=== PATIENT | male | born 1945 | race Caucasian/White ===

== ENCOUNTER 2016-12-03 03:06 | Emergency (ER) | payer MEDICARE ==
[~2016-12-03] VITALS: Ht 180.3 cm; Wt 109.1 kg
[~2016-12-03 03:06] MED LIST: ASPI-973 PO; BENA5TAB PO; CHOL10008 PO; DILT240C89 PO; INSLIS SUBQ; INSU100V28 SUBQ; METF500T4 PO; MYCO500T PO; OXYC5TAB72 PO; PANT40TA3 PO; PYRI60TA2 PO; TAMS0.4C98 PO; VENL75TA3 PO; WARF10TA PO; WARF7.5T PO
[2016-12-03 03:10] VITALS: BP 115/63; RESP 20; O2SAT 96
[2016-12-03 04:19] VITALS: BP 122/68; PULSE 84; RESP 20; O2SAT 97
--- NOTE | 2016-12-03 04:19 | ED.REPORT ---
HPI-Facial Injury Date of Service Dec 03, 2016 ED Provider: Miguel White MD Patient is a 70 year old male with a history of diabetes mellitus, myasthenia gravis, and chronic atrial fibrillation on Coumadin who presents to the ED with an intermittent right-sided nosebleed that began yesterday, uncontrollable for 1 hour prior to arrival. He states that the blood sometimes runs down his throat. His INR was last checked on November 14 and it was 2.8. It has been stable at that level for some time. Patient denies sustaining any recent trauma to his nose. He does not have any other sources of bleeding. Nursing Notes Stated Complaint: NOSE BLEED Chief Complaint: ENT & Mouth Nursing Notes Reviewed: Yes Allergies: Coded Allergies: sulfamethoxazole (Verified Allergy, Intermediate, RASH, 12/03/16) trimethoprim (Verified Allergy, Intermediate, RASH, 12/03/16) Scheduled Aspirin (Aspirin) 81 Mg Tablet 81 MG PO DAILY Benazepril (Benazepril) 5 Mg Tablet 5 MG PO DAILY Cholecalciferol (Vitamin D3) (Vitamin D3) 1,000 Unit Tab.chew 2,000 UNIT PO DAILY Diltiazem ER (Diltiazem ER) 240 Mg Cap.er.24h 240 MG PO DAILY Insulin Human Lispro (HumaLOG U100 Insulin Vial) 100 Unit/Ml Unit 1 UNIT SUBQ per sliding scale Check blood sugars before meals and at bedtime. Use correction factor only before meals. Blood Sugar Lispro Correction: <151, 0 units; 151-175, 1 unit; 176-200, 2 units; 201-225, 3 units; 226-250, 4 units; 251-275, 5 units; 276-300 , 6 units; 301-325, 7 units; 326-350, 8 units; 351-375, 9 units; 376-400, 10 units; >400, 12 units. Insulin Regular, Human (HUMulin-R U100 Insulin Vial) 100 Unit/1 Ml Vial 70 UNIT SUBQ QAM Insulin Regular, Human (HUMulin-R U100 Insulin Vial) 100 Unit/1 Ml Vial 1 UNIT SUBQ per sliding scale pm Metformin (Metformin) 500 Mg Tablet 500 MG PO BID Mycophenolate Mofetil (Cellcept) 500 Mg Tablet 500 MG PO BID Pantoprazole DR (Pantoprazole DR) 40 Mg Tablet.dr 40 MG PO DAILY Pyridostigmine Hondo (Mestinon) 60 Mg Tablet 90 MG PO TID Tamsulosin (Flomax) 0.4 Mg Capsule 0.4 MG PO DAILY Venlafaxine (Venlafaxine) 75 Mg Tablet 75 MG PO BID Warfarin Sodium (Coumadin) 7.5 Mg Tablet 7.5 MG PO 5xweekly Warfarin Sodium (Coumadin) 10 Mg Tablet 10 MG PO Mon/Thurs Scheduled PRN oxyCODONE (oxyCODONE) 5 Mg Tablet 5 MG PO q4 PRN PRN For Moderate Pain General Time Seen by Provider: 04:21 Chief Complaint Nose bleed Hx Obtained From: Patient Arrived By: Walk-in Onset Occurred: Just prior to arrival Symptom Duration: Intermittent Location: : Nose Quality: Painful Severity: Current: Mild Severity: Maximum: Mild Recent Healthcare: No recent doctor visit, No recent hospitalization Similar Sx Previous: No Past Medical History Past Medical History Myasthenia gravis Anxiety insomnia Vitamin D deficiency atrial fibrillation on Warfarin Reports: Diabetes mellitus, Hyperlipidemia, Hypertension Past Surgical History None reported Smoking History Former Smoker Social History Alcohol Use: 1-3 per week Drug Use: Denies drug use Other Social History: Good social support, , Local resident Occupation Retired Radiologist Ambulatory Status Independent Review of Systems Ears / Nose / Throat: Reports: Nose bleeding, Denies: Sinus problem Neurologic: Denies: Change LOC, Headache Complete sys rev & neg: except as marked. Hematologic: Reports Bleeding, Denies Bruising Physical Exam Initial Vital Signs Vital Signs (First) Date Time Temp Pulse Resp B/P Pulse Ox O2 Delivery O2 Flow Rate FiO2 12/03/16 03:10 36.5 83 20 115/63 96 Room Air Initial VS: Reviewed, Vital signs normal Extremities: Vascular intact, Neuro intact Skin: Warm, Dry, No cyanosis Psychiatric: Mood/affect normal, Behavior normal, Normal thought content Head / Eyes: Atraumatic, Normocephalic, PERRL ENT: Airway patent Nose: Positive: Epistaxis right clamp in place Neck: Supple, Full range of motion Neurologic: Oriented X3, Speech NL, No motor deficits, No sensory deficits General/Constitutional: Awake, Alert Appearance / Presentation: Positive: Obese blood stained shirt Respiratory / Chest: Breath sounds NL, No respiratory distress, No stridor Cardiovascular: Heart rate NL, Peripheral circulation NL Interpretation & Diagnostics Lab Results Interpretation Result Diagram: 12/03/16 0509 Test 12/03/16 05:05 White Blood Count 9.0th/mm3 (3.8-10.1) Red Blood Count 4.10mil/mm3 (4.40-5.80) Hemoglobin 12.4g/dL (13.8-17.2) Hematocrit 38.4% (41.0-50.0) Mean Corpuscular Volume 93.7fL (81-100) Mean Corpuscular Hemoglobin 30.2pg (27.0-35.0) Mean Corpuscular Hemoglobin Concent 32.3% (32.0-37.0) Red Cell Distribution Width 13.9% (12.3-15.4) Platelet Count 220bil/L (150-400) Neutrophils (%) (Auto) 59.6% (40-74) Lymphocytes (%) (Auto) 26.3% (14-46) Monocytes (%) (Auto) 9.7% (4-12) Eosinophils (%) (Auto) 3.9% (0-5) Basophils (%) (Auto) 0.3% (0-3) Prothrombin Time 35.1sec (8.1-12.5) Prothromb Time International Ratio 3.20ratio Hold Bonilla Top Tube Received (Received) Lab Results Interpretation: INR 3.2, a little elevated hemoglobin 12.4, no significant anemia. Procedures Epistaxis Management Time: 06:00 Procedure Performed by: ED physician Consent / Setup / Site Prep: Consent from patient, Time-out performed, Hand hygiene observed, Stand sterile technique Side and Location of Bleed: Nare right - unknown Pre-medication and Procedure: Oxymetazoline, Rapid rhino inserted Post-Procedure / Complications: Bleeding decreased (dripping around the rhinorocket), Complications, Patient stable, Patient unstable, Tolerated procedure well Re-Eval/Medical Decision Med Decision/Clinical Course 70-year-old male with a nontraumatic nosebleed related to his warfarin. His INR is 3.2. He does not show any significant anemia. We were able to stop his bleeding with a combination of Afrin nasal spray and a Rhino Rocket. He will hold his Coumadin for 2 days and then follow up with his regular Coumadin clinic. Source of Hx: Old records Re-Evaluation/Progress #1: Time of Eval: 04:22 Re-Evaluation/Progress Note: Patient has a clamp in place and has used afrin. He states that blood is something running down his throat. Re-Evaluation/Progress #2: Time of Eval: 05:48 Re-Evaluation/Progress Note: Informed the patient that his INR is 3.2. This means he will need to hold 2x doses of his coumadin. Will need to insert rhino rocket. Re-Evaluation/Progress #3: Time of Eval: 06:00 Patient Status: Condition improved Re-Evaluation/Progress Note: Epistaxis management preformed. Will re-evaluate. Re-Evaluation/Progress #4: Time of Eval: 06:25 Patient Status: Condition improved Re-Evaluation/Progress Note: Rechecked the patient. His bleeding has now halted. Patient understands and agrees with the plan to be discharged home. Discharge instructions and follow-up discussed. All questions were addressed. Return to the ED warnings given. Counseled Regarding: Diagnosis, Lab results, Need for follow-up, When/why to return to ED Discharge & Departure Impression: Primary Impression: Right-sided epistaxis Additional Impression: Supratherapeutic INR Disposition: Home Discharge Condition All VS Reviewed: Yes Condition: Improved Patient Instructions: Epistaxis (ED) Additional Instructions: Your INR is 3.2. Holds her Coumadin for 2 days then resume after testing per your Coumadin clinic. Follow-up with your regular doctor or ENT referral in the next 2 or 3 days for management of the packing. Referrals: Manjula Walton MD (PCP) Kimo Banerjee MD Attestation Portions of this note were transcribed by Blossom Escudero. I, Dr. White personally performed the history, physical exam and medical decision-making; I reviewed and confirmed the accuracy of the information in the transcribed note. Signed by: Carol Valenzuela, 12/03/2016 0632 copies to: Kimo Banerjee MD; Manjula Walton MD, Howard L MD Dec 03, 2016 04:19 Blossom Escudero Dec 03, 2016 04:25
[2016-12-03 05:16] LABS: BASOPHILS % (AUTO) 0.3 % (0-3); EOSINOPHILS % (AUTO) 3.9 % (0-5); MONOCYTES % (AUTO) 9.7 % (4-12); Mean Corpuscular Hemoglobin 30.2 pg (27.0-35.0); Mean Corpuscular Volume 93.7 fL (81-100); NEUTROPHILS % (AUTO) 59.6 % (40-74); Platelet Count 220 bil/L (150-400)
[2016-12-03 05:27] LABS: INR 3.2 ratio
[2016-12-03 06:44] VITALS: BP 134/70; PULSE 84; RESP 16; O2SAT 98
== END 2016-12-03 06:32 | disposition home or self-care (01) ==
LOC: SED 03:06
DX: R04.0 Epistaxis (principal); R79.1 Abnormal coagulation profile; I48.91 Unspecified atrial fibrillation; I10 Essential (primary) hypertension; E11.9 Type 2 diabetes mellitus without complications; E78.5 Hyperlipidemia, unspecified; Z79.82 Long term (current) use of aspirin; Z79.4 Long term (current) use of insulin; Z79.84 Long term (current) use of oral hypoglycemic drugs; Z79.01 Long term (current) use of anticoagulants; Z87.891 Personal history of nicotine dependence; Z88.1 Allergy status to other antibiotic agents; Z88.8 Allergy status to other drugs, medicaments and biological substances